=== PATIENT | female | born 1955 | race Caucasian/White ===

== ENCOUNTER 2018-10-30 15:30 | Day surgery (SDC) | payer OTHER ==
[2018-10-30] MEDS ORDERED: LIDOCAINE 1% (MPF) 30 ML INJ (16:54)
[2018-10-30] MEDS ORDERED: BUPIVACAINE 0.5% (SDV) 30 ML INJ (16:54)
[2018-10-30] MEDS ORDERED: LACTATED RINGER'S 1,000 ML IV (17:00)
[2018-10-30] MEDS ORDERED: PROPOFOL 20 ML (17:05)
[2018-10-30] MEDS ORDERED: ROCURONIUM 50 MG INJ (17:05)
[2018-10-30] MEDS ORDERED: MIDAZOLAM 1 MG/ML 2 ML INJ (17:05)
[2018-10-30] MEDS ORDERED: CEFAZOLIN 1 GM INJ (17:05)
[2018-10-30] MEDS ORDERED: FENTAnyl 50 MCG/ML VIAL (17:05)
[2018-10-30] MEDS ORDERED: ROPIVACAINE 0.5 % 30 ML VIAL (17:05)
[2018-10-30] MEDS ORDERED: LABETALOL HCL 20MG INJ IV (17:30)
[2018-10-30] MEDS ORDERED: hydrALAzine 20 MG INJ IV (17:30)
[2018-10-30] MEDS ORDERED: FENTAnyl 50 MCG/ML VIAL IV ×2 (17:30)
[2018-10-30] MEDS ORDERED: EPHEDrine 25 MG/5 ML SYG IV (17:30)
[2018-10-30] MEDS ORDERED: HYDROmorphONE 1 MG/5 ML IV SYRINGE IV ×3 (17:30)
[2018-10-30] MEDS ORDERED: METOCLOPRAMIDE 10 MG INJ IV (17:30)
[2018-10-30] MEDS ORDERED: ONDANSETRON 4 MG INJ (18:24)
[2018-10-30] MEDS ORDERED: DEXAMETHASONE 4 MG/ML 5 ML INJ (18:24)
[2018-10-30] MEDS ORDERED: KETOROLAC 30 MG INJ (18:24)
[2018-10-30] MEDS ORDERED: METOCLOPRAMIDE 10 MG INJ (18:24)
[2018-10-30] MEDS ORDERED: GLYCOPYRROLATE 0.4 MG INJ (18:36)
[2018-10-30] MEDS ORDERED: NEOSTIGMINE 3 MG/3 ML SYRINGE (18:36)
[2018-10-30] MEDS: ONDANSETRON 4 MG INJ IV (18:57)
[2018-10-30] MEDS: FENTAnyl 50 MCG/ML VIAL IV (18:57)
[2018-10-30] MEDS: OXYCODONE/ACETAMINOPHEN (5/325) TAB PO (19:29)
== END 2018-10-30 19:56 | disposition home or self-care (01) ==
LOC: SDS 15:30
DX: S52.571A Other intraarticular fracture of lower end of right radius, initial encounter for closed fracture (principal); G56.01 Carpal tunnel syndrome, right upper limb; X58.XXXA Exposure to other specified factors, initial encounter; Y93.89 Activity, other specified; Y92.89 Other specified places as the place of occurrence of the external cause; Y99.8 Other external cause status
CPT/HCPCS: 25280; 73110-RT